=== PATIENT | male | born 1950 | race Caucasian/White ===

== ENCOUNTER → 2021-01-01 | Outpatient (CLI) | payer OTHER ==
[~2021-01-01] VITALS: Ht 177.8 cm; Wt 93.0 kg
[~2021-01-01] MED LIST: ALLEGRA ALLERG180 MG PO; BACLOFEN 10MG T10 MG PO; DIAZEPAM 5 MG5 M1 PO; DIOVAN320 MG PO; EXCEDRIN CAPLE1 EACH PO; FLOMAX0.4 MG PO; FLUVASTATIN ER80 MG PO; HYDROCHLOROTH12.5 M2 PO; IRBESARTAN300 MG PO; MOBIC15 MG PO; NORTRIPTYLINE H25 M3 PO; OMEPRAZOLE 20 M20 M1 PO; ZANAFLEX4 MG PO; ZETIA10 MG PO
--- NOTE | ~2021-01-01 | HPC ---
[facility] [address] [place] [address] PAIN MANAGEMENT CONSULTATION Name: MELISSA LUCAS Room #: REG Harry Goddard#: [id number] Admission: 01/01/21 Attend Phys: Keegan Johnson DO Discharge: Date of : 48 Report #: [id number] THIS REPORT FOR: cc: Dayron RECINOS,Demetrius Padgett II,Keegan Morin MD, DO ~ DATE OF SERVICE: 01/01/2021 CHIEF COMPLAINT: Right neck pain and right head pain. HISTORY OF PRESENT ILLNESS: As you know, the patient is a pleasant 70-year-old male who has had a longstanding history of right neck pain and right head pain. He states the pain began in . He denies any specific injury or trauma. He has been seen by pain management in the past. I advised the patient's symptoms are related to cervical facet arthropathy and was advised treatment options were limited for that type of problem. He has "just been putting up with it for years." He has not seen Surgery in regards to his issues. He has no radicular component to his pain. He is able to localize pain in the right upper cervical area with radiation to the medial aspect of the scapula and radiation towards the lesser occipital nerve on the right with intermittent greater occipital nerve pain radiating all the way to the supraorbital ridge on the right. He has trialled [id number] medications, rest, relaxation and adjustments in his daily activities without improvement. He was started on an anti-inflammatory in the form of meloxicam, but notes no benefit. He has been referred to our clinic to discuss potential treatment options. The patient indicates his pain is constant. He describes his pain as shooting, cramping and sharp, places current pain score 7/10, daily average at 7/10. Worst pain has been is 10/10. The patient states that his pain is exacerbated with just basic daily activities. The only thing that improves his symptoms is the use of Valium. He is receiving his medications through his primary care physician. He has been referred to our service to discuss interventional treatment options. PAST MEDICAL HISTORY: 1. Hypertension. 2. Gastroesophageal reflux disease. 3. Degenerative joint disease. 4. Osteoarthritis. 5. History of skin cancers. PAST SURGICAL HISTORY: 1. Rotator cuff repair, 2018. 2. Repair of an anal fissure, 2001. 3. Cholecystectomy, 1989. 4. [place] [address] PAIN MANAGEMENT CONSULTATION Name: MELISSA LUCAS Room #: REG JAYA Goddard#: [id number] Admission: 01/01/21 Attend Phys: Keegan Johnson DO Discharge: Date of : 48 Report #: [id number] SOCIAL HISTORY: The patient is a reformed smoker, he quit in 1988 though reports he was an extremely heavy smoker prior to that. He denies IV or illicit drug use. Admits to 3 alcoholic beverages per week. He reports he is retired, not receiving workmen's compensation nor is trying to obtain discrete benefits. He is not in litigation in regards to pain. He is unaccompanied at today's visit. REVIEW OF SYSTEMS: Positive for fatigue and weakness, frequent and recurrent headaches, wearing corrective eyewear, glaucoma and cataracts, hearing loss with tinnitus, earaches with drainage on the right side, abdominal pain, frequent urination, nocturia, incontinence or dribbling to urine, sexual difficulty, bleeding, bruising tendencies. All other review of systems negative per 12-point review of systems other than those listed in history of present illness. Pain impact score rated at 45 of 70, moderate to severe, interference of daily activities secondary to pain. ALLERGIES: No known drug allergies. CURRENT MEDICATIONS: Excedrin caplet one tab p.o. q. 6 hours p.r.n., diazepam 5 mg once a day, tamsulosin 0.4 mg once a day, fexofenadine 180 mg once a day, omeprazole 20 mg once a day, irbesartan 300 mg once a day, hydrochlorothiazide 12.5 mg once a day, Meloxicam 15 mg p.o. q.a.m., Zetia 10 mg once a day, fluvastatin ER 80 mg once a day. IMAGING: X-ray of the cervical spine obtained on 12/26/2020 shows arthritic changes. There does appear to be relatively normal alignment. No significant subluxations or malpositioning. PHYSICAL EXAMINATION: VITAL SIGNS: Blood pressure 149/83, pulse 74, respiratory rate 16 and unlabored. The patient 98% on room air. Height 5 feet 10 inches tall, weight 205 pounds, BMI calculated 29.4. GENERAL: Well-developed, well-nourished, well-hydrated 70-year-old male, he appears his stated age. He is placing current pain score 6/10. HEENT: Normocephalic, atraumatic. Pupils equal, round and reactive. NEUROLOGIC: Speech is fluent. The patient deemed a good historian. He is wearing a mask in compliance with COVID-19 regulations. LUNGS: Clear, no wheeze, rhonchi or rales. CARDIOVASCULAR: Regular. No appreciable gallop, no rub. ABDOMEN: Soft, nontender, nondistended. EXTREMITIES: Show no clubbing, cyanosis, no edema. MUSCULOSKELETAL: Upper extremity strength appears equal and symmetrical 5/5. Muscle bulk and tone equal and symmetrical in upper extremities. Deep tendon [facility] [address] [place] [address] PAIN MANAGEMENT CONSULTATION Name: MELISSA LUCAS Room #: REG [facility]#: [id number] Admission: 01/01/21 Attend Phys: Keegan Johnson DO Discharge: Date of : 48 Report #: [id number] reflexes are symmetrical at biceps, brachioradialis and triceps. There is palpatory tenderness noted over the paraspinal musculature of the cervical spine on the right. Deep palpation in the upper cervical area just at the C2-C3 level causes intensification of pain with radiation over the occiput and towards the lesser occipital nerve distribution. Deep palpation over the trapezius in multiple areas shows tender points, but no specific trigger points. There is also tender points noted along the medial aspect of the scapula. Cervical provocation testing is met with reduction in capability of rotation and lateral flexion to the right. Pain is elicited with both maneuvers, negative left. Muscle bulk and tone equal and symmetrical in upper extremities. ASSESSMENT: 1. Cervical facet arthropathy. 2. Cervicogenic headache. 3. Chronic intractable pain. PLAN: 1. Based on today's physical exam and the history the patient has provided, the description the patient uses in regards to pain and the distribution this patient experiencing symptoms on it would appear he is suffering from facet arthropathy of cervical spine with a classic third occipital neuralgia. We discussed with the patient the findings of his x-ray imaging. Unfortunately, this only provides us two dimensional graphics, which do not provide us much in the way of understanding the neural foramen or the central canal, but given the fact that he is not experiencing any radicular component further imaging at this point, I do not think is necessary. It would appear the patient is suffering from facet arthropathy with overlying myofascial symptoms generating his ongoing pain. The patient does report that his symptoms improved with Valium. This would indicate that the majority of his symptoms are myofascial in origin. We discussed with the patient the treatment options we have for cervical facet arthropathy pain and the cervicogenic headache the patient continues to experience. We discussed the following with the patient today. 2. We discussed physical therapy, stretching exercises and traction techniques as the gold standard of treatment for arthritic changes in the cervical spine. We discussed medication suggestions with adjustments in his nonsteroidal anti-inflammatory for a more effective dose of therapy this in conjunction with a muscle relaxant that may provide less sedation. The patient indicates that he finds Valium quite beneficial and is wondering if he can remain on this medication. We discussed with the patient, also facet injections, which will address his underlying facet arthropathy, but will provide minimal benefit for his cervicogenic headache. We also discussed Botox injections into the paraspinal musculature of the cervical spine to reduce his ongoing headaches and muscle spasming the source of his head pain and the majority of his neck pain. We then also discussed surgical options with the patient. After reviewing risks and benefits of all proposed treatment options, the patient chose to begin with [address] [address] PAIN MANAGEMENT CONSULTATION Name: MELISSA LUCAS Room #: REG JAYA Goddard#: [id number] Admission: 01/01/21 Attend Phys: Keegan Johnson DO Discharge: Date of : 48 Report #: [id number] medication management, but to consider Botox injections. 3. We recommend the patient to discontinue all other medications for his muscle spasming including the diazepam and transfer his medications to baclofen 10 mg 1 tab p.o. t.i.d. I have given the patient #90 tablets. I have advised the patient to watch for side effects of sleepiness, disorientation, confusion, mental slowing with use of the medication. We have recommended that he take the medication on an as needed basis initially if he is finding that he is not having any sleepiness or cognition issues, he can take it 3 times a day if he finds it beneficial. He was given this prescription with 2 refills. 4. The patient and I did discuss the possibility of undergoing Botox injections. We do not provide this type of therapy at our clinic, but do have a good referral physician to send the patient to. I believe this would help his cervicogenic headache. It has been very successful in other patients and I believe would be beneficial in this patient's case as well. If the patient wishes to discuss this further, we would be more than willing to provide him that referral. 5 We will see the patient back in followup visits after a couple of weeks of trial with the baclofen medication. If he is not noticing improvement, we would recommend Botox injections. If these are then unsuccessful at alleviating his symptoms, I would recommend discussing his case with Neurosurgery. The patient is agreeable with plan. We have made him an appointment back to discuss efficacy of medications and other treatment options if this medication adjustment is unsuccessful. 6. We wish to thank Dr. Demetrius Padgett for the opportunity to see this patient in consultation. We will keep you apprised of his response to treatment as we address cervicogenic headache and cervical facet arthropathy of the right cervical region. Again, we wish to thank you for the opportunity to see the patient in consultation. By: 1713 [id number] Keegan Johnson DO /nt
[2021-01-01 14:20] VITALS: BP 149/83
--- NOTE | 2021-01-01 14:55 | NUR ---
Pain Clinic Assessment: 1. History of Osteoarthritis: Not Applicable History of Rheumatoid Arthritis: Not Applicable 2. Height: 5 ft. 10 in. 177.8 cm. Weight: 205.0 lb. oz. 92.988 kg. Patient's BMI: 29.4 3. Vital Signs: BP: 149/83 Pulse: 74 Resp: 16 Temp: 02 Sat: 98 ECG Mon: 4. Pain Intensity: 6 5. Fall Risk: Dizziness: Y Needs help standing or walking: N Fallen in the last 3 months: N Fall risk comments: 6. Patient on Blood Thinner: None 7. History of Hypertension: Y 8. Opioid Therapy greater than 6 weeks: N Opiate Contract Signed: 9. Risk Assessment Tool Provided: 0 LOW RISK 10. Functional Assessment Tool: 45/70 11. Recreational Drug Use: Past greater than 3 mos Drug Type: Tobacco Use: Former Smoker Tobacco Type: Amount or Packs/day: How Many Years: Alcohol Use: Yes Frequency: Weekly Quant: 2-3
== END ==
LOC: PAIN 06:58
PROVIDERS: ATTEND Anesthesiology Pain Medicine
DX: R51.9 Headache, unspecified (principal); M54.2 Cervicalgia; M46.92 Unspecified inflammatory spondylopathy, cervical region; G89.29 Other chronic pain